=== PATIENT | male | born 1975 | race Caucasian/White ===

== ENCOUNTER 2018-11-16 16:24 | Emergency (ER) | payer OTHER ==
[~2018-11-16] VITALS: Ht 180.3 cm; Wt 73.5 kg
[2018-11-16 16:28] VITALS: Ht 180.3 cm; Wt 73.5 kg
[2018-11-16 18:05] LABS: BASOPHIL % 0.5 % (0-2); PLATELET COUNT 248 x10^3mcL (130-400); RED CELL DISTRIBUTION WIDTH 13.3 % (11.5-14.5)
[2018-11-16 18:11] LABS: CALCIUM 8.3 mg/dL (8.5-10.1); CARBON DIOXIDE 30.2 mmol/L (21-32); CHLORIDE SERUM 104 mmol/L (98-107); CREATININE SERUM 1.1 mg/dL (0.7-1.3); GFR1 > 60 mL/min; GLUCOSE SERUM 75 mg/dL (74-106); POTASSIUM SERUM 4.1 mmol/L (3.5-5.1); SODIUM SERUM 141 mmol/L (136-145)
[2018-11-16 19:39] VITALS: BP 112/72
== END 2018-11-16 19:39 | disposition home or self-care (01) ==
LOC: ED 16:24
PROVIDERS: Emergency Medicine
DX: R51 Headache (principal); R20.0 Anesthesia of skin
CPT/HCPCS: 36415; J1100; J2765

== ENCOUNTER 2018-11-18 15:17 | Emergency (ER) | payer OTHER ==
[~2018-11-18] VITALS: Ht 180.3 cm; Wt 74.8 kg
[2018-11-18 15:28] VITALS: Ht 180.3 cm; Wt 74.8 kg
[2018-11-18 18:00] VITALS: BP 112/72
== END 2018-11-18 18:00 | disposition home or self-care (01) ==
LOC: ED 15:17
DX: R51 Headache (principal); R20.0 Anesthesia of skin
CPT/HCPCS: J1885; J2765